=== PATIENT | female | born 1990 | race Two or more races ===

== ENCOUNTER 2018-05-14 23:37 | Emergency (ER) | payer OTHER ==
[~2018-05-14] VITALS: Ht 180.3 cm; Wt 131.1 kg
[2018-05-15] MEDS ORDERED: CEFUROXIME250 MG PO (03:51)
== END 2018-05-15 04:03 | disposition home or self-care (01) ==
LOC: ER 23:37
DX: R07.89 Other chest pain (principal)

== ENCOUNTER 2020-06-20 05:40 | Day surgery (SDC) | payer OTHER ==
[~2020-06-20 05:40] MED LIST: CEFUROXIME250 MG PO
== END 2020-06-20 11:00 | disposition home or self-care (01) ==
LOC: CIR.AMB 05:40
PROVIDERS: ATTEND Surgery
DX: L72.11 Pilar cyst (principal); Z20.828 Contact with and (suspected) exposure to other viral communicable diseases